=== PATIENT | female | born 1985 | race Caucasian/White ===

== ENCOUNTER → 2018-04-04 21:59 | Outpatient (CLI) | payer MEDICAID, SELFPAY ==
[2018-04-05 00:20] LABS: Chlamydia Trachomatis by PCR Negative (Negative); Neisserai gonorrhoeae by PCR Negative (Negative); Probe Check PASS; Sample Adequacy Control PASS; Specimen Processing Control PASS
[2018-04-07 15:02] LABS: HPV Reflexed? NOT INDICATED
== END ==
PROVIDERS: Visit Provider Obstetrics & Gynecology
DX: Z12.4 Encounter for screening for malignant neoplasm of cervix (principal); Z11.3 Encounter for screening for infections with a predominantly sexual mode of transmission; Z32.01 Encounter for pregnancy test, result positive
CPT/HCPCS: 87491; 87591; 88175; G0145

== ENCOUNTER → 2018-05-03 14:42 | Outpatient (CLI) | payer MEDICAID, SELFPAY ==
[2018-05-03 15:54] LABS: Absolute Lymphocyte Count 2.47 X10^3/ul (0.83-4.51); Absolute Neutrophil Count 4.2 X10^3/uL (2.0-7.7); Basophil# 0.02 X10^3/uL; Basophil% 0.3 % (0-1); Eosinophil# 0.17 X10^3/uL; Eosinophils% 2.3 % (0-5); Hemoglobin 11.5 g/dl (12.0-15.0); Lymphocyte # 2.47 X10^3/ul (4.0); Lymphocyte % 34.1 % (19-41); Mean Corp Hgb Conc 32.9 g/gl (32-36); Mean Corpuscular Hgb 29.7 pg (27.0-32.0); Mean Corpuscular Volume 90.4 fL (81-99); Mean Platelet Vol. 9.8 fl (6.2-12.0); Monocyte% 5.5 % (0-10); Neutrophil # 4.17 X10^3/uL (2.7-7.7); Neutrophil % 57.5 % (47-70); Platelet Count 272 K/mm3 (150-450); RBC Distribution Width CV 14.4 % (11.6-14.6); RBC Distribution Width SD 46.4 fl (35.1-43.9); Red Blood Count 3.87 M/mm3 (4.2-5.4); White Blood Count 7.3 K/mm3 (4.4-11.0)
[2018-05-03 16:09] LABS: POSITIVE COUNT NO; POSITIVE DIFFERENTIAL NO; POSITIVE MORPHOLOGY NO
[2018-05-03 16:20] LABS: Thyroid Stim Hormone (TSH) 1.56 uIU/mL (0.358-3.74)
[2018-05-03 16:32] LABS: Color, Urine Yellow (Yellow); Glucose, Dipstick Normal (Normal); Ketone-Dipstick Negative (Negative); Leukocyte Esterase-Dipstick 25 /ul (Negative); Nitrite-Dipstick Positive (Negative); Occult Blood-Urine 10 /ul (Negative); Protein-Dipstick Negative (Negative); Specific Gravity, Urine 1.015 (1.002-1.030); Urine Bilirubin Dipstick Negative (Negative); Urine Clarity Sl. Cloudy (Clear); Urine Urobilinogen Normal (Normal); Urine pH 6.5 (5.0 - 8.0)
[2018-05-03 16:40] LABS: Amphetamine Urine VISTA NEGATIVE (<1000 ng/mL); Barbiturate Urine VISTA NEGATIVE (< 200 ng/mL); Benzodiazepine Urine VISTA NEGATIVE (< 200 ng/mL); Cocaine Urine VISTA NEGATIVE (< 300 ng/mL); Ecstacy Urine VISTA NEGATIVE (< 500 ng/mL); Methadone Urine VISTA POSITIVE (< 300 ng/mL); PCP Urine VISTA NEGATIVE (< 25 ng/mL); THC Urine VISTA NEGATIVE (< 50 ng/mL); Vista UDS pH Range 6
[2018-05-03 17:01] LABS: HIV - WCH Non-Reactive (Nonreactive); Rubella IgG 56.3 IU/mL
[2018-05-03 17:07] LABS: COTININE Drug Screen Positive (<200 ng/mL)
[2018-05-05 03:42] LABS: Prenatal RPR NONREACTIVE (NONREACTIVE)
[2018-05-05 11:31] LABS: HEPATITIS B SURFACE AG Negative (Negative); Hep C Antibodies <0.1 s/co ratio (0.0-0.9)
== END ==
PROVIDERS: Visit Provider Obstetrics & Gynecology
DX: Z34.81 Encounter for supervision of other normal pregnancy, first trimester (principal)
CPT/HCPCS: 80307; 81002; 84443; 85025; 86703; 86762; 86803; 87340

== ENCOUNTER → 2018-10-04 13:55 | Outpatient (CLI) | payer MEDICAID, SELFPAY ==
[2018-10-04 16:06] LABS: Glucose Challenge Gest 1H 50g 67 mg/dL (70-140)
[2018-10-04 16:20] LABS: Hematocrit 31.9 % (37-47); Mean Corp Hgb Conc 31.3 g/gl (32-36); Mean Corpuscular Hgb 29.9 pg (27.0-32.0); Mean Corpuscular Volume 95.2 fL (81-99); Mean Platelet Vol. 10.1 fl (6.2-12.0); Platelet Count 248 K/mm3 (150-450); RBC Distribution Width SD 43.2 fl (35.1-43.9); Red Blood Count 3.35 M/mm3 (4.2-5.4); White Blood Count 10.3 K/mm3 (4.4-11.0)
[2018-10-04 16:45] LABS: Scan Indicated on CBC? Y/N NO
== END ==
PROVIDERS: Visit Provider Obstetrics & Gynecology
DX: Z34.83 Encounter for supervision of other normal pregnancy, third trimester (principal)
CPT/HCPCS: 36415; 82950; 85027

== ENCOUNTER → 2018-10-24 14:59 | Outpatient (CLI) | payer MEDICAID, SELFPAY ==
[2015-04-25 07:41] VITALS: BMI 27.1
== END ==
PROVIDERS: Visit Provider Obstetrics & Gynecology
DX: Z36.85 Encounter for antenatal screening for Streptococcus B (principal)
CPT/HCPCS: 87081

== ENCOUNTER 2018-11-11 15:55 | Inpatient (IN) | payer MEDICAID, SELFPAY ==
[2015-04-25 07:41] VITALS: BMI 27.1
[2018-11-11] MEDS: Lactated Ringers 1,000 ML 50 ML IV (16:03)
[2018-11-11 16:17] LABS: Hematocrit 31.7 % (37-47); Hemoglobin 10.7 g/dl (12.0-15.0); Mean Corp Hgb Conc 33.8 g/gl (32-36); Mean Corpuscular Hgb 29.5 pg (27.0-32.0); Mean Corpuscular Volume 87.3 fL (81-99); Mean Platelet Vol. 9.3 fl (6.2-12.0); Platelet Count 383 K/mm3 (150-450); RBC Distribution Width CV 13.1 % (11.6-14.6); RBC Distribution Width SD 42.2 fl (35.1-43.9); Red Blood Count 3.63 M/mm3 (4.2-5.4); White Blood Count 25.1 K/mm3 (4.4-11.0)
[2018-11-11 16:18] LABS: Scan Indicated on CBC? Y/N NO
[2018-11-11] MEDS: Oxytocin 30 units/NS 500 ml 30 UNITS/500 ML IV.SOLN 334 UNITS IV (16:20)
--- NOTE | 2018-11-11 16:40 | PCM.OB.VAG ---
Vaginal Delivery Maternal Presentation: Active Labor 37w4d ega with SROM and advanced active labor Amniotic Membrane Rupture Type: Spontaneous at home Rupture of Membrane time: 1430 Amniotic Fluid Description: Clear Final DILSHAD: 11/28/18 Final DILSHAD Source: US <20 weeks Gestational age: 37 Weeks and 4 Days doctor who attended delivery (if requested by OB): Reina Miranda Date of Procedure: 11/11/18 Pre-Operative Diagnosis: Labor Post-Operative Diagnosis: same Surgery/ Procedure Performed: Spontaneous Vaginal Delivery Type of Anesthesia: None Description of Procedure: Niesha had SROM at home. She presented here in advanced labor at 9 cm. She progressed rapidly to fully dilated then pushed over about 20 minutes to deliver a live female . There was a loose cord around the neck which was reduced at delivery. The cord was clamped and cut. She was handed off to the waiting nursing and cardboard inserter for evaluation. The placenta delivered spontaneously intact. The uterus contracted well. Inspection revealed an intact cervix, vagina, and perineum. Due to history of opiate use for chronic pain a urine toxicology screen was sent. Presentation: Vertex Placental Delivery Description: Spontaneous Placenta Disposition: [facility] Percentage of Placenta Abruption: 0 Cord Vessel Description: 3 Vessels Nuchal Cord Compression: Without compression Cord Entanglement: Around neck x 1, loose Estimated Blood Loss: 200cc A gender: Female (1 minute): 8 (5 minute): 8 Episiotomy Description: None Laceration: None Medications given after delivery: IV Pitocin Complications: None
[2018-11-11 16:42] VITALS: BMI 25.4
[2018-11-11] MEDS: Oxytocin 30 units/NS 500 ml 30 UNITS/500 ML IV.SOLN 167 UNITS IV (17:00)
--- NOTE | 2018-11-11 17:05 | DCINST_ITS ---
Discharge Diet: No Restrictions Discharge Activity: Return to Normal Activity, May Drive, May Shower Return to work on:: 12/27/18 May resume sexual activity in: 4-6 weeks Call your doctor if your incision/area has: Sudden Increased Bleeding, Foul Smelling Discharge Call your doctor if you observe: Fever of 101 or Higher, Inability to urinate, Inability to have a bowel movement, Using more than one pad per hour, Shortness of breath, Chest pain, Calf discomfort, Uncontrolled pain Cleanse incision/area with: Soap & Water Additional Instructions: If you experience any of the following, contact your healthcare provider. * Bleeding that soaks a pad every hour for 2 hours * Fever 100.4 or higher * Unrelieved incision or abdominal pain * Swelling, redness, discharge or bleeding from your incision or episiotomy site * Your incision begins to separate * Problems urinating (including inability to urinate or burning while urinating). * Visual changes * Severe headache * Flu-like symptoms * Pain or redness in one of both of your breasts * Pain, warmth, tenderness or swelling in your legs, especially the calf area * Frequent nausea and vomiting * Symptoms of depression or anxiety If you experience any of the following, call 911 or go to the nearest Emergency Room. * Chest pain * Problems breathing * Seizure activity * Partial or complete paralysis of a body part, slurred speech, weakness or drooping of the face, or a sudden inability to walk or hold your balance Allergies/Adverse Reactions: Allergies No Known Allergies Allergy (Verified 11/11/18 16:47) Medications to take at Discharge Albuterol Inhaler [Ventolin Hfa] 2 puff INHALATION Q4H PRN PRN #1 inhaler 04/25/15 Oxycodone [Oxyir] 5 - 10 mg PO Q4H PRN PRN #20 tablet 04/25/15 proMETHazine tablet [Phenergan tablet] 25 mg PO Q6H PRN PRN #30 04/25/15 Atenolol 50 mg PO BID 11/11/18 Ferrous Sulfate 325 mg PO BIDCM 11/11/18 Gabapentin [Neurontin] 300 mg PO TIDCM 11/11/18 Ibuprofen [Motrin] 600 mg PO Q6H PRN PRN #30 tab 11/11/18 Ranitidine [Zantac Syrup] 75 mg PO BID udc 11/11/18 Ranitidine [Zantac] 150 mg PO DAILY 11/11/18 Sertraline HCl [Zoloft] 25 mg PO DAILY 11/11/18 Sertraline HCl [Zoloft] 50 mg PO DAILY #30 tab 11/11/18 The following prescriptions were given: Ibuprofen [Motrin] 600 mg PO Q6H PRN PRN #30 tab PRN Reason: cramping Sertraline HCl [Zoloft] 50 mg PO DAILY #30 tab Please Follow Up With: Michael Patton MD When: three weeks--please call for appointment Test Results: Test results from this visit will be discussed in further detail at your follow- up appointment, if applicable. Proposed Discharge Date: 11/13/18
[2018-11-11] MEDS: 0.9% Saline Lock 10 ML Syringe IV (19:11)
[2018-11-11] MEDS: Ferrous Sulfate 325 MG Tablet PO (19:11)
[2018-11-11 19:46] LABS: Amphetamine Urine VISTA NEGATIVE (<1000 ng/mL); Barbiturate Urine VISTA NEGATIVE (< 200 ng/mL); Benzodiazepine Urine VISTA NEGATIVE (< 200 ng/mL); Cocaine Urine VISTA POSITIVE (< 300 ng/mL); Ecstacy Urine VISTA NEGATIVE (< 500 ng/mL); Methadone Urine VISTA NEGATIVE (< 300 ng/mL); PCP Urine VISTA NEGATIVE (< 25 ng/mL); THC Urine VISTA NEGATIVE (< 50 ng/mL); Vista UDS pH Range 7
[2018-11-11 20:00] VITALS: BP 108/66; PULSE 84; RESP 16; TEMP 36.6
[2018-11-11] MEDS: Gabapentin 300 MG Capsule PO (20:22)
[2018-11-11] MEDS: oxyCODONE 5 MG Tablet PO (20:22)
[2018-11-12 00:10] VITALS: BP 140/66; PULSE 81; RESP 16; TEMP 36.8
[2018-11-12] MEDS: oxyCODONE 5 MG Tablet PO ×4 (00:36→20:41)
[2018-11-12] MEDS: Zolpidem Tartrate 5 MG Tablet ORAL (00:36)
[2018-11-12 03:30] VITALS: BP 143/67; PULSE 83; RESP 16; TEMP 37.1
[2018-11-12 06:51] LABS: Hematocrit 29.5 % (37-47); Hemoglobin 9.7 g/dl (12.0-15.0); Mean Corp Hgb Conc 32.9 g/gl (32-36); Mean Corpuscular Hgb 29.1 pg (27.0-32.0); Mean Corpuscular Volume 88.6 fL (81-99); Mean Platelet Vol. 9.4 fl (6.2-12.0); Platelet Count 339 K/mm3 (150-450); RBC Distribution Width CV 13.3 % (11.6-14.6); RBC Distribution Width SD 43.2 fl (35.1-43.9); Red Blood Count 3.33 M/mm3 (4.2-5.4); White Blood Count 12.5 K/mm3 (4.4-11.0)
[2018-11-12 06:57] LABS: Scan Indicated on CBC? Y/N NO
[2018-11-12 07:40] VITALS: BP 111/65; PULSE 87; RESP 16; TEMP 37.2
--- NOTE | 2018-11-12 08:20 | NURSING ---
0820 Discussed with Niesha the reasoning behind DEMAR scoring and the importance of accurate scoring so that baby can be treated appropriately. Symptoms to watch written down for Niesha so that she could report accurately. States that baby has had 3 episodes of hiccups and has started sneezing this morning. RN gave baby bath and reviewed teaching.
[2018-11-12] MEDS: Gabapentin 300 MG Capsule PO ×3 (08:30→17:02)
[2018-11-12] MEDS: Ferrous Sulfate 325 MG Tablet PO ×2 (08:30→17:02)
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
[2018-11-12] MEDS: Sertraline 50 MG Tablet PO (10:19)
[2018-11-12 12:00] VITALS: BP 125/74; PULSE 86; RESP 18; TEMP 36.9
[2018-11-12] MEDS: Ibuprofen 600 MG Tablet PO (14:57)
[2018-11-12 16:00] VITALS: BP 126/72; PULSE 98; RESP 18; TEMP 37.2
[2018-11-12 20:40] VITALS: BP 128/64; PULSE 92; RESP 16; TEMP 36.9; O2SAT 96
[2018-11-13] MEDS: Zolpidem Tartrate 5 MG Tablet ORAL (00:25)
[2018-11-13] MEDS: Ibuprofen 600 MG Tablet PO (00:29)
[2018-11-13 02:00] VITALS: BP 126/60; PULSE 76; RESP 16; TEMP 37.2; O2SAT 98
[2018-11-13] MEDS: oxyCODONE 5 MG Tablet PO ×3 (02:00→14:04)
--- NOTE | 2018-11-13 07:29 | PCM.PN.OB ---
Subjective: No specific complaints other than cramping and shoulder pain. Bleeding light. Objective: Afeb VSS - Physical Exam General: Alert, Oriented x3, Cooperative, No apparent distress Lungs: Clear to auscultation, Normal air movement Cardiovascular: Regular rate, Regular Rhythm Abdomen: Soft, Non Tender, Non-Distended Extremities: No edema Skin: No rashes Neurological: Neuro grossly intact Psych/Mental Status: Normal Affect Comment: Lochia light Vital Signs Temp Pulse Resp BP Pulse Ox 98.9 F 76 16 126/60 H 98 11/13/18 02:00 11/13/18 02:00 11/13/18 02:00 11/13/18 02:00 11/13/18 02:00 Oxygen Delivery Method Room Air Weight: 143 lb 4.807 oz Body Mass Index (BMI) 25.4 Medical Necessity - Tobacco Use Smoking Status: Current every day smoker Assessment/Plan Doing well from PP standpoint. Baby likely to stay in special care. Will discharge to hotel status. Home going instructions given.
--- NOTE | 2018-11-13 07:30 | PCM.DC.SUM ---
Discharge Date and Diagnosis Date of Admission: 11/11/18 Date of Discharge: 11/13/18 - Primary Discharge Diagnosis s/p Hospital Course and Treatment Operations: None Procedures: - - Summary of Care Provided: The patient is a 33 year old F [admitted in advanced labor. progressed rapidly to FD then pushed to deliver a live without complication. Admission complicated by discovery of positive cocaine on urine tox screen. History of narcotic use during her . Otherwise uncomplicated post course. Discharged on PP day#2.] - Physical Exam Vital Signs Temp Pulse Resp BP Pulse Ox 98.9 F 76 16 126/60 H 98 11/13/18 02:00 11/13/18 02:00 11/13/18 02:00 11/13/18 02:00 11/13/18 02:00 Oxygen Delivery Method Room Air Weight: 143 lb 4.807 oz Body Mass Index (BMI) 25.4 Discharge Diet: No Restrictions Discharge Activity: Return to Normal Activity, May Drive, May Shower Return to work on:: 12/27/18 May resume sexual activity in: 4-6 weeks Call your doctor if your incision/area has: Sudden Increased Bleeding, Foul Smelling Discharge Call your doctor if you observe: Fever of 101 or Higher, Inability to urinate, Inability to have a bowel movement, Using more than one pad per hour, Shortness of breath, Chest pain, Calf discomfort, Uncontrolled pain Cleanse incision/area with: Soap & Water Home Medications: Medications to take at Discharge Albuterol Inhaler [Ventolin Hfa] 2 puff INHALATION Q4H PRN PRN #1 inhaler 04/25/15 Oxycodone [Oxyir] 5 - 10 mg PO Q4H PRN PRN #20 tablet 04/25/15 proMETHazine tablet [Phenergan tablet] 25 mg PO Q6H PRN PRN #30 04/25/15 Atenolol 50 mg PO BID 11/11/18 Ferrous Sulfate 325 mg PO BIDCM 11/11/18 Gabapentin [Neurontin] 300 mg PO TIDCM 11/11/18 Ibuprofen [Motrin] 600 mg PO Q6H PRN PRN #30 tab 11/11/18 Ranitidine [Zantac Syrup] 75 mg PO BID udc 11/11/18 Ranitidine [Zantac] 150 mg PO DAILY 11/11/18 Sertraline HCl [Zoloft] 25 mg PO DAILY 11/11/18 Sertraline HCl [Zoloft] 50 mg PO DAILY #30 tab 11/11/18 Following Prescrptions Were Given to Patient: Ibuprofen [Motrin] 600 mg PO Q6H PRN PRN #30 tab PRN Reason: cramping Sertraline HCl [Zoloft] 50 mg PO DAILY #30 tab Please Follow Up With: Michael Patton MD When: 6 weeks--call to [facility] appointment Disposition: Home Minutes spent on discharge:: 15 Patient Condition:: Good Medical Necessity - Tobacco Use Smoking Status: Current every day smoker Meaningful Use Info Meaningful Use Diagnoses (Choose all that apply): None applicable
[2018-11-13] MEDS: Gabapentin 300 MG Capsule PO ×2 (08:49→14:05)
[2018-11-13] MEDS: Ferrous Sulfate 325 MG Tablet PO (08:49)
[2018-11-13 08:51] VITALS: BP 122/73; PULSE 74; RESP 16; TEMP 36.7; O2SAT 97
[2018-11-13] MEDS: Sertraline 50 MG Tablet PO (10:57)
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
[2018-11-13 14:00] VITALS: BP 131/64; PULSE 68; RESP 16; TEMP 36.4; O2SAT 99
[2018-11-13] MEDS: Senna/Docusate Sodium 1 Tablet PO (14:04)
--- NOTE | 2018-11-15 15:37 | CASEMGMT ---
Social Work Labor and Delivery Unit Handoff report from MICHELLE Jack regarding this family. Charts of mother of baby and baby reviewed. MOB was discharged on 11-13-18 and baby discharging today, 11-15-2018. Spoke with [facility]ia Lez[facility] at [facility] , to confirm plan being worked on for this family. [facility] reports the reported FOB Sony Adams is approved to care for baby and that letter being faxed to this typewriter repairer. Per [facility], children services will be following family closely and will likely even have a police well check done over the weekend to ensure that plan is being followed. Received letter from [facility] indicating that baby can be discharged to B Rory Adams, that MOB can be with baby so as long at [facility] or another approved family member is present with MOB and baby at all times. Updated teradata developer Dr. Quevedo and also Cece RN. Updated that MOB still has custody of baby so will be discharging baby to MOB, but essentially from letter that MOB is not be alone with baby at discharge and FOB must be present. Letter placed on baby's chart. Received call from Cece RN reporting that FOB tried to call and get pediatric follow up but the office was closed. FOB instructed to call in the morning tomorrow. This typewriter repairer called Malia at [facility] to update and ask that [facility] follow up with parents to assure that baby's pediatric follow up appointment is made for 1-2 days as is the usual recommendation at time of discharge. [facility] agrees and voices understanding. This typewriter repairer inquired about MOB and baby going to [facility], as previously noted by social security assessor on 11-14-18. Per [facility], this referral was placed as MOB's responsibility to call and get assessment going. Plan: MOB has been discharged and baby discharging today with verbal safety plan in place set by [facility]. [facility] reports will be working with family on getting wrap around services in place. No other services requested or indicated. -PRASHANT Matamoros, PERSONNEL OFFICER
== END 2018-11-13 15:40 | disposition home or self-care (01) | DRG 560 ==
PROVIDERS: Admitting Provider Obstetrics & Gynecology; Visit Provider Obstetrics & Gynecology
DX: O69.81X0 Labor and delivery complicated by cord around neck, without compression, not applicable or unspecified (principal); O99.334 Smoking (tobacco) complicating childbirth; Z79.899 Other long term (current) drug therapy; Z3A.37 37 weeks gestation of pregnancy; Z37.0 Single live birth
CPT/HCPCS: 59050; 80307; 85027; 86850; 86900; 99218; J7120; A4216; G0378